=== PATIENT | male | born 1945 | race African-American/Black ===

== ENCOUNTER 2017-05-21 17:37 | Inpatient (IN) ==
[2017-05-21] MEDS ORDERED: ATIVAN IV ONE (17:57)
[2017-05-21] MEDS ORDERED: ATIVAN IM ONE (18:05)
[2017-05-21] MEDS ORDERED: KEPPRA 500 MG in NS 100 ML IV ONE (18:15)
[2017-05-21 19:14] LABS: INR 1.36; PROTIME 14.6 Seconds (9.2-11.7)
[2017-05-21 19:19] LABS: ALBUMIN 3.4 g/dL (3.5-5.0); CALCIUM 8.4 mg/dL (8.8-10.2); MAGNESIUM 1.7 mg/dL (1.5-2.7); POTASSIUM 3.8 mmol/L (3.5-5.1); TOTAL BILIRUBIN 1.15 mg/dL (0.20-1.00); TOTAL PROTEIN 7.4 g/dL (6.3-8.3)
[2017-05-21 19:20] LABS: BASO% 0.1 % (0.0-0.8); EOS# 0.03 X1000 (0.0-0.7); EOS% 0.4 % (0.0-10.0); HEMATOCRIT 34.4 % (42.0-52.0); HEMOGLOBIN 11.6 g/dL (14.0-18.0); IMM GRAN# 0.02 X1000 (0.0-0.04); IMM GRAN% 0.3 % (0.0-0.5); LYMPH# 0.24 X1000 (1.2-3.4); LYMPH% 3.2 % (20.5-51.1); MANUAL DIFF NEEDED? NO; MCH 29.3 PG (27-31); MCHC 33.7 g/dL (33-37); MCV 86.9 FL (81-99); MONO# 0.31 X1000 (0.11-0.59); MONO% 4.2 % (1.7-9.3); MPV 10.7 FL (7.4-10.4); NEUT% 91.8 % (42.2-75.2); PLT 123 X1000 (130-400); RBC 3.96 XMIL (4.7-6.1)
[2017-05-21] MEDS ORDERED: ZOFRAN IV PRN (23:45)
[2017-05-21] MEDS ORDERED: ATIVAN IV PRN (23:45)
[2017-05-21] MEDS ORDERED: TYLENOL PO PRN (23:45)
[2017-05-22] MEDS: KEPPRA 500 MG in NS 100 ML IV SCH ×2 (06:07→17:11)
[2017-05-22 06:52] LABS: HEMATOCRIT 32.5 % (42.0-52.0); HEMOGLOBIN 10.7 g/dL (14.0-18.0); MCH 29.9 PG (27-31); MCHC 32.9 g/dL (33-37); MCV 90.8 FL (81-99); MPV 10.8 FL (7.4-10.4); RBC 3.58 XMIL (4.7-6.1)
[2017-05-22 07:35] LABS: ALBUMIN 3.2 g/dL (3.5-5.0); CALCIUM 8.8 mg/dL (8.8-10.2); POTASSIUM 4.3 mmol/L (3.5-5.1); TOTAL BILIRUBIN 0.87 mg/dL (0.20-1.00)
[2017-05-22] MEDS ORDERED: LOVENOX SUBQ ONE (08:00)
[2017-05-22] MEDS: COREG PO SCH ×2 (10:47→22:29)
[2017-05-23] MEDS: KEPPRA 500 MG in NS 100 ML IV SCH (05:53)
[2017-05-23] MEDS ORDERED: TIGHT: 0.2 ML/HR MISC PRN (07:03)
[2017-05-23] MEDS ORDERED: NS 2,000 ML MISC PRN (07:03)
[2017-05-23] MEDS ORDERED: HEPARIN IV PRN (07:03)
[2017-05-23] MEDS ORDERED: NS 2,000 ML ONE (07:21)
[2017-05-23] MEDS ORDERED: HEPARIN ONE (07:21)
[2017-05-23 07:42] VITALS: BP 129/73
[2017-05-23] MEDS: COREG PO SCH (08:47)
[2017-05-23] MEDS ORDERED: EPOGEN SUBQ SCH (09:00)
[2017-05-23 11:10] LABS: HEPATITIS PROFILE ACUTE SEE COMMENTS
== END 2017-05-23 16:39 | disposition hospice, home (50) ==
LOC: ED 17:37 → 3N 23:28 → SUATTDRO 23:28 → UNDODISIN 05-23 14:44
PROVIDERS: ATTEND Internal Medicine